=== PATIENT | female | born 1955 | race Caucasian/White ===

== ENCOUNTER 2018-06-05 23:20 | Emergency (ER) | payer OTHER ==
[~2018-06-05] VITALS: Ht 154.9 cm; Wt 69.4 kg
[~2018-06-05 23:20] MED LIST: LORATADINE; METOPROLOL
[2018-06-05 23:25] VITALS: BP 216/86; PULSE 77; RESP 19; Ht 154.9 cm; Wt 69.4 kg
[2018-06-06] MEDS ORDERED: GUAI120011 PO (00:13)
[2018-06-06] MEDS ORDERED: FLUT9.9S NASAL (00:13)
--- NOTE | 2018-06-06 00:16 | ERD ---
ER Documentation Chief Complaint Chief Complaint BILATERAL EAR PAIN WITH COUGH X3DAYS HPI 62-year-old female who presents with elevated blood pressure and bilateral ear pain the patient has been dealing with sinus congestion for approximately 3 days with dry nonproductive cough treated with aygr-bdn-fihweqd medications. She states compliance with her blood pressure medication. The patient describes a fullness sensation in the bilateral ears. She denies any fevers or chills, no shortness of breath. No significant headache chest pain. ROS All systems reviewed and are negative except as per history of present illness. Medications Home Meds Active Scripts Guaifenesin (Mucinex) 1,200 Mg Tab.er.12h, 1200 MG PO BID PRN for sinus congestion for 5 Days, TAB Prov:ONESIMO RM MD 06/06/18 Fluticasone Propionate (Flonase Allergy Relief) 9.9 Ml Simon.susp, 1 SPRAY NASAL BID for 7 Days, #1 BOTTLE TO EACH NOSTRIL Prov:ONESIMO RM MD 06/06/18 Reported Medications [Metoprolol] No Conflict Check 04/22/16 [Loratadine] No Conflict Check 04/22/16 Allergies Allergies: Uncoded Allergies: PCN (Allergy, Mild, RASH, 01/08/15) PMhx/Soc History of Surgery: Yes (TUBAL LIGATION) Anesthesia Reaction: No Hx Neurological Disorder: No Hx Respiratory Disorders: No Hx Cardiac Disorders: Yes (HYPERTENSION) Hx Psychiatric Problems: No Hx Miscellaneous Medical Probl: Yes (HYPERLIPIDEMIA) Hx Alcohol Use: No Hx Substance Use: No Hx Tobacco Use: No Smoking Status: Former smoker FmHx Family History: No diabetes Physical Exam Vitals Vital Signs Date Temp Pulse Resp B/P (MAP) Pulse Ox O2 O2 Flow FiO2 Time Delivery Rate 06/06/18 97.1 71 16 179/90 100 Room Air 00:10 (119) 06/05/18 99.0 77 19 216/86 99 23:25 (129) Physical Exam General: Well developed, well nourished, no acute distress Head: Normocephalic, atraumatic. Eyes: Pupils equally reactive, EOM intact ENT: Moist mucous membranes, small serous effusion to the bilateral tympanic membranes without bulging or erythema. Neck: Supple, no lymphadenopathy Respiratory: Lungs clear bilaterally, no distress Cardiovascular: RRR, no murmurs, rubs, or gallops Abdominal: Soft, non-tender, non-distended, no peritoneal signs : Deferred MSK: No edema, no unilateral swelling, 5/5 strength Neurologic: Alert and oriented, moving all extremities, normal speech, no focal weakness, no cerebellar signs Skin: No rash Psych: Normal mood Procedures/MDM Patient's blood pressure was elevated (>120/80) but appears stable without evidence of hypertensive emergency or urgency. The patient was counseled about the risks of hypertension and urged to pursue outpatient monitoring and therapy within a week with their primary care physician. The patient's clinical presentation is very consistent with an acute viral syndrome. The patient's ear pain is consistent with serous effusion likely secondary to nasal congestion and decreased is a pharyngeal clearance. Decongestant that is non-Sudafed given the patient's blood pressure would be appropriate. Mucinex sounds reasonable. The patient's blood pressure trended down without intervention. The patient does not exhibit any clinical signs or symptoms concerning for serious bacterial infection or systemic illness. Based on history and clinical exam findings the patient does not appear to have evidence of pneumonia, strep pharyngitis, urinary tract infection, bacteremia, sepsis, or meningitis. For these reasons I do not believe it is necessary to obtain laboratory testing or diagnostic imaging. I believe it would be appropriate for symptom control, and close outpatient primary care follow-up. We discussed follow up with the patient's primary care doctor within 24 to 48 hours as needed. We also discussed return to the emergency room for worsening symptoms or worsening condition. Discharge Medications: Mucinex, Flonase Departure Diagnosis: Primary Impression: Asymptomatic hypertensive urgency Additional Impression: Acute serous otitis media of left ear without rupture Condition: Stable Patient Instructions: Sinus Headaches, Hypertension, Established, Out Of Control Referrals: [facility] Usted se vigil hecho un examen mdico de control que le indica que no est en jessica condicin que requiera tratamiento urgente en el Departamento de Emergencia. Un estudio ms profundo y el tratamiento de verma condicin pueden esperar sin ningn riesgo hasta que usted sea atendida/o en el consultorio de verma mdico o jessica clnica. Es responsabilidad suya arreglar jessica malinda para el seguimiento del lena. MANEJO DE CONDICIONES NO URGENTES EN EL FUTURO 1) Si usted tiene un mdico de atencin primaria: Usted debera llamar a verma mdico de atencin primaria antes de venir al departamento de emergencia. Despus de las horas de consultorio, verma doctor o verma asociado/a est disponible por telfono. El mdico o enfermero de romel en el servicio telefnico puede asesorarle por [facility] para atender el problema, o lena contrario se puede programar jessica malinda. 2) Si usted no tiene un mdico de atencin primaria: Llame al mdico o clnica de referencia que aparece abajo taina las horas de consultorio para hacer jessica malinda para que le vean. CLINICAS: [facility] [phone] [address] [facility] [phone] [facility] [phone] [address] [facility] [facility] [phone] [address] [facility] [phone] [address] [facility]. [phone] [facility] () Usted se vigil hecho un examen mdico de control que le indica que no est en jessica condicin que requiera tratamiento urgente en el Departamento de Emergencia. Un estudio ms profundo y el tratamiento de verma condicin pueden esperar sin ningn riesgo hasta que usted sea atendida/o en el consultorio de verma mdico o jessica clnica. Es responsabilidad suya arreglar jessica malinda para el seguimiento del lena. MANEJO DE CONDICIONES NO URGENTES EN EL FUTURO 1) Si usted tiene un mdico de atencin primaria: Usted debera llamar a verma mdico de atencin primaria antes de venir al departamento de emergencia. Despus de las horas de consultorio, verma doctor o verma asociado/a est disponible por telfono. El mdico o enfermero de romel en el servicio telefnico puede asesorarle por [facility] para atender el problema, o lena contrario se puede programar jessica malinda. 2) Si usted no tiene un mdico de atencin primaria: Llame al mdico o condado institucions de referencia que aparece abajo taina las horas de consultorio para hacer jessica malinda para que le vean. SI USTED NO PUEDE PAGAR PARA FLORENCIA UN MEDICO puede ir a: [facility] [address] [place] [address] [facility] [address] [place] [address] [facility] [address] [place] [address] [facility] [address] [place], [place] [id number] Additional Instructions: Llame al doctor nombrado abajo (Referral Sources) MAANA y candida jessica MALINDA PARA DENTRO DE JESSICA SEMANA. Dgale a la secretaria que nosotros le instruimos hacer esta malinda.Avise o llame si verma condicin se empeora antes de la malinda. ONESIMO RM MD Jun 06, 2018 00:16
== END 2018-06-06 00:41 | disposition home or self-care (01) ==
LOC: E/R 23:20
DX: I16.0 Hypertensive urgency (principal); H66.002 Acute suppurative otitis media without spontaneous rupture of ear drum, left ear; B34.9 Viral infection, unspecified; I10 Essential (primary) hypertension; Z87.891 Personal history of nicotine dependence
CPT/HCPCS: 99282